=== PATIENT | female | born 1990 | race Two or more races ===

== ENCOUNTER 2016-10-12 18:50 | Emergency (ER) | payer OTHER ==
[~2016-10-12] VITALS: Ht 154.9 cm; Wt 46.3 kg
== END 2016-10-12 20:50 | disposition home or self-care (01) ==
LOC: CFTX 18:50 → CED 18:50 → CFTX 20:37
DX: J02.9 Acute pharyngitis, unspecified (principal)
CPT/HCPCS: 87651; 99282

== ENCOUNTER 2016-11-03 15:55 | Emergency (ER) | payer OTHER ==
[~2016-11-03] VITALS: Ht 154.9 cm; Wt 47.6 kg
== END 2016-11-03 16:36 | disposition home or self-care (01) ==
LOC: CED 15:55 → CFTX 15:55
DX: Z76.0 Encounter for issue of repeat prescription (principal); F41.9 Anxiety disorder, unspecified
CPT/HCPCS: 99283